=== PATIENT | male | born 1970 | race Caucasian/White ===

== ENCOUNTER 2019-02-10 14:58 | Emergency (ER) | payer OTHER ==
[~2019-02-10] VITALS: Ht 177.8 cm; Wt 99.8 kg
[2019-02-10] MEDS ORDERED: CLINDAMYCIN HC300 MG PO (16:04)
== END 2019-02-10 16:17 | disposition home or self-care (01) ==
LOC: ED 14:58
DX: S61.217A Laceration without foreign body of left little finger without damage to nail, initial encounter (principal); W29.8XXA Contact with other powered hand tools and household machinery, initial encounter; Y93.89 Activity, other specified; Y92.89 Other specified places as the place of occurrence of the external cause; Y99.8 Other external cause status